=== PATIENT | female | born 1965 | race Caucasian/White ===

== ENCOUNTER → 2017-11-20 | Outpatient (CLI) | payer MEDICARE ==
[~2017-11-20] MED LIST: Bactrim,Septra DS 80 PO; METHADONE10 MG PO; NEURONTIN300 MG PO; Percocet 7.5/325,End PO; TRAMADOL HCL100 MG PO
== END | disposition home or self-care (01) ==
LOC: CDC 15:00
DX: R00.0 Tachycardia, unspecified (principal); G89.29 Other chronic pain
CPT/HCPCS: 93000